=== PATIENT | female | born 1970 | race Two or more races ===

== ENCOUNTER 2017-08-31 06:37 | Outpatient (CLI) | payer OTHER ==
[~2017-08-31 06:37] MED LIST: AMOX1TAB12 PO; AZO-TABS95 MG PO; CATAFLAM50 MG PO; DOLOGESIC CAPLE1 TAB PO; FLONASE16 GM NS; PREDNISONE10 MG PO; PROVENTIL3 ML/2.5 M IH; RELAGESIC TABL1 EACH PO; TOBREX5 ML OP; TUSSI PRES-B L120 M1 PO; ZYNCOF 20-400120 ML PO; ZYRTEC10 MG PO
== END 2017-08-31 07:06 | disposition home or self-care (01) ==
LOC: LAB 06:37
DX: E03.9 Hypothyroidism, unspecified (principal); Z00.01 Encounter for general adult medical examination with abnormal findings; E78.2 Mixed hyperlipidemia; L63.9 Alopecia areata, unspecified; Z68.31 Body mass index [BMI] 31.0-31.9, adult; Z12.11 Encounter for screening for malignant neoplasm of colon; Z12.4 Encounter for screening for malignant neoplasm of cervix; R73.09 Other abnormal glucose

== ENCOUNTER 2018-05-11 12:13 | Outpatient (CLI) | payer OTHER | END 2018-05-11 12:34 | disposition home or self-care (01) | LOC: RAD 12:13 | DX: M79.672 Pain in left foot (principal) ==

== ENCOUNTER → 2018-06-10 | Outpatient (CLI) | payer OTHER | END | disposition home or self-care (01) | LOC: MAMO-SONO 11:14 | DX: N60.19 Diffuse cystic mastopathy of unspecified breast (principal); Z12.31 Encounter for screening mammogram for malignant neoplasm of breast ==

== ENCOUNTER 2018-09-19 16:47 | Outpatient (CLI) | payer OTHER | END 2018-09-19 20:13 | disposition home or self-care (01) | LOC: LAB 16:47 | DX: J11.1 Influenza due to unidentified influenza virus with other respiratory manifestations (principal); J11.89 Influenza due to unidentified influenza virus with other manifestations ==

== ENCOUNTER 2019-10-17 16:35 | Emergency (ER) | payer OTHER ==
[~2019-10-17] VITALS: Ht 160 cm; Wt 87.5 kg
== END 2019-10-17 21:43 | disposition home or self-care (01) ==
LOC: ER 16:35
DX: R07.89 Other chest pain (principal); M94.0 Chondrocostal junction syndrome [Tietze]

== ENCOUNTER 2019-12-08 06:23 | Emergency (ER) | payer OTHER ==
[~2019-12-08] VITALS: Ht 160 cm; Wt 81.6 kg
[2019-12-08] MEDS ORDERED: ATACAND4 MG (06:39)
[2019-12-08] MEDS ORDERED: PEPCID AC20 MG PO (14:49)
[2019-12-08] MEDS ORDERED: ASPIR 8181 MG PO (14:49)
[2019-12-08] MEDS ORDERED: ULTRACET PO (14:49)
== END 2019-12-08 15:46 | disposition home or self-care (01) ==
LOC: ER 06:23
DX: R07.89 Other chest pain (principal); R51 Headache

== ENCOUNTER → 2019-12-23 15:43 | Outpatient (CLI) | payer OTHER ==
[~2019-12-23 15:43] MED LIST changes: +ASPIR 8181 MG PO; +ATACAND4 MG; +PEPCID AC20 MG PO; +ULTRACET PO
== END | disposition home or self-care (01) ==
LOC: PPH VACUNA 15:43
DX: Z23 Encounter for immunization (principal)

== ENCOUNTER 2020-08-30 06:31 | Outpatient (CLI) | payer OTHER | END 2020-08-30 18:50 | disposition home or self-care (01) | LOC: LAB 06:31 | PROVIDERS: ATTEND Internal Medicine Cardiovascular Disease | DX: I10 Essential (primary) hypertension (principal) ==

== ENCOUNTER → 2020-09-24 06:34 | Outpatient (CLI) | payer OTHER | END | disposition home or self-care (01) | LOC: LAB 06:34 | DX: M54.5 Low back pain (principal); M54.2 Cervicalgia ==

== ENCOUNTER 2021-03-30 09:00 | Outpatient (CLI) | payer OTHER | END 2021-03-30 09:15 | disposition home or self-care (01) | LOC: PPH VACUNA 09:00 | PROVIDERS: ATTEND Emergency Medicine Pediatric Emergency Medicine | DX: Z23 Encounter for immunization (principal) | CPT/HCPCS: 90686; G0008 ==

== ENCOUNTER 2021-04-12 15:38 | Outpatient (CLI) | payer OTHER | END 2021-04-12 15:50 | disposition home or self-care (01) | LOC: LAB 15:38 | DX: Z20.828 Contact with and (suspected) exposure to other viral communicable diseases (principal); Z03.818 Encounter for observation for suspected exposure to other biological agents ruled out ==

== ENCOUNTER 2021-04-22 09:00 | Outpatient (CLI) | payer OTHER | END 2021-04-22 09:15 | disposition home or self-care (01) | LOC: PPH VACUNA 09:00 | PROVIDERS: ATTEND Emergency Medicine Pediatric Emergency Medicine | DX: Z23 Encounter for immunization (principal) ==

== ENCOUNTER 2021-07-08 07:08 | Outpatient (CLI) | payer OTHER | END 2021-07-08 07:14 | disposition home or self-care (01) | LOC: SONOGRAMA 07:08 | PROVIDERS: ATTEND Surgery | DX: N60.11 Diffuse cystic mastopathy of right breast (principal); N60.12 Diffuse cystic mastopathy of left breast ==

== ENCOUNTER 2021-09-22 07:03 | Outpatient (CLI) | payer OTHER | END 2021-09-22 07:13 | disposition home or self-care (01) | LOC: LAB 07:03 | PROVIDERS: ATTEND General Practice | DX: Z00.00 Encounter for general adult medical examination without abnormal findings (principal); E78.5 Hyperlipidemia, unspecified; E55.9 Vitamin D deficiency, unspecified; R42 Dizziness and giddiness; R10.9 Unspecified abdominal pain; I10 Essential (primary) hypertension; R10.2 Pelvic and perineal pain; M25.50 Pain in unspecified joint; M54.9 Dorsalgia, unspecified; M25.562 Pain in left knee ==

== ENCOUNTER 2022-08-25 06:53 | Outpatient (CLI) | payer OTHER | END 2022-08-25 06:54 | disposition home or self-care (01) | LOC: LAB 06:53 | PROVIDERS: ATTEND Internal Medicine Endocrinology, Diabetes & Metabolism | DX: E78.9 Disorder of lipoprotein metabolism, unspecified (principal); E11.65 Type 2 diabetes mellitus with hyperglycemia; E06.3 Autoimmune thyroiditis ==

== ENCOUNTER 2022-08-31 10:01 | Outpatient (CLI) | payer OTHER | END 2022-08-31 10:04 | disposition home or self-care (01) | LOC: LAB 10:01 | PROVIDERS: ATTEND General Practice | DX: D64.9 Anemia, unspecified (principal); M54.2 Cervicalgia ==

== ENCOUNTER 2022-11-07 11:28 | Outpatient (CLI) | payer OTHER | END 2022-11-07 11:35 | disposition home or self-care (01) | LOC: MAMO-SONO 11:28 | PROVIDERS: ATTEND Specialist | DX: Z12.31 Encounter for screening mammogram for malignant neoplasm of breast (principal); N63.0 Unspecified lump in unspecified breast; N92.0 Excessive and frequent menstruation with regular cycle ==

== ENCOUNTER 2022-12-15 09:20 | Outpatient (CLI) | payer OTHER | END 2022-12-15 09:30 | disposition home or self-care (01) | LOC: PPH VACUNA 09:20 | PROVIDERS: ATTEND Emergency Medicine Pediatric Emergency Medicine | DX: Z23 Encounter for immunization (principal) ==

== ENCOUNTER 2024-01-14 08:45 | Outpatient (CLI) | payer OTHER | END 2024-01-14 09:00 | disposition home or self-care (01) | LOC: PPH VACUNA 08:45 | PROVIDERS: ATTEND Emergency Medicine Pediatric Emergency Medicine | DX: Z23 Encounter for immunization (principal) ==

== ENCOUNTER 2024-09-08 11:13 | Outpatient (CLI) | payer OTHER ==
[2024-09-10 05:07] LABS: HEPATITIS B SURFACE ANTIBODY Non Reactive (.); HEPATITIS C VIRUS ANTIBODY Non Reactive (Non Reactive)
== END 2024-09-08 11:44 | disposition home or self-care (01) ==
LOC: EDBD 11:13 → LAB 11:13
DX: A64 Unspecified sexually transmitted disease (principal); B19.9 Unspecified viral hepatitis without hepatic coma

== ENCOUNTER → 2024-11-28 06:12 | Outpatient (CLI) | payer OTHER ==
[2024-11-28 08:31] LABS: T4 FREE 0.91 NG/ML (0.76-1.46)
[2024-11-28 08:32] LABS: TSH 5.99 uIU/mL (0.358-3.74)
[2024-11-28 10:38] LABS: VITAMIN D3 25 HYDROXY 25.86 ng/ml (30-120)
== END | disposition home or self-care (01) ==
LOC: LAB 06:12
PROVIDERS: ATTEND Internal Medicine Endocrinology, Diabetes & Metabolism
DX: E06.3 Autoimmune thyroiditis (principal); E53.8 Deficiency of other specified B group vitamins; E55.0 Rickets, active

== ENCOUNTER 2025-02-03 11:06 | Outpatient (CLI) | payer OTHER | END 2025-02-03 11:08 | disposition home or self-care (01) | LOC: MAMO-SONO 11:06 | PROVIDERS: ATTEND Surgery | DX: N60.11 Diffuse cystic mastopathy of right breast (principal); N60.12 Diffuse cystic mastopathy of left breast ==

== ENCOUNTER 2025-02-06 13:36 | Outpatient (CLI) | payer OTHER | END 2025-02-06 13:46 | disposition home or self-care (01) | LOC: PPH VACUNA 13:36 | PROVIDERS: ATTEND Emergency Medicine Pediatric Emergency Medicine | DX: Z23 Encounter for immunization (principal) ==

== ENCOUNTER 2025-03-11 12:40 | Outpatient (CLI) | payer OTHER | END 2025-03-11 12:41 | disposition home or self-care (01) | LOC: SONOGRAMA 12:40 | PROVIDERS: ATTEND Internal Medicine Endocrinology, Diabetes & Metabolism | DX: E04.8 Other specified nontoxic goiter (principal) ==

== ENCOUNTER 2025-03-12 06:06 | Outpatient (CLI) | payer OTHER ==
[2025-03-12 07:23] LABS: CHOL HDL RATIO 5.1 (0-5.0); HDL 39.0 mg/dl (40-60); LDL 126.0 mg/dl (0-130); T4 FREE 1.21 NG/ML (0.76-1.46); TSH 2.81 uIU/mL (0.358-3.74); VLDL 35.0 (0-39)
== END 2025-03-12 06:11 | disposition home or self-care (01) ==
LOC: LAB 06:06
PROVIDERS: ATTEND Internal Medicine Endocrinology, Diabetes & Metabolism
DX: E03.8 Other specified hypothyroidism (principal); E78.00 Pure hypercholesterolemia, unspecified